=== PATIENT | female | born 1945 | race Caucasian/White ===

== ENCOUNTER 2023-10-16 08:58 | Observation (INO) ==
--- NOTE | 2023-09-21 11:41 | PAT Medication Instructions ---
Medication Instructions Date of Service September 21, 2023 Home Medications acetaminophen 325 mg tablet 650 mg PO TID PRN amlodipine 10 mg tablet 10 mg PO DAILY aripiprazole 10 mg tablet 10 mg PO DAILY benzonatate 100 mg capsule 100 mg PO TID PRN carboxymethylcellulose sodium 0.5 % eye drops (Refresh Tears) 1 drp OPB BID diazepam 5 mg tablet 5 mg PO BID ferrous sulfate 325 mg (65 mg iron) tablet 325 mg PO DAILY fluoxetine 10 mg capsule 10 mg PO DAILY fluoxetine 40 mg capsule 40 mg PO DAILY losartan 100 mg tablet 100 mg PO DAILY metoprolol succinate 25 mg tablet,extended release 24 hr 75 mg PO DAILY pantoprazole 40 mg tablet,delayed release 40 mg PO BID thiamine HCl (vitamin B1) 100 mg tablet (Vitamin B-1) 100 mg PO BID tramadol 50 mg tablet 50 mg PO QID PRN trazodone 50 mg tablet 25 mg PO HS Check with prescriber aripiprazole 10 mg tablet 10 mg PO DAILY Continue as directed amlodipine 10 mg tablet 10 mg PO DAILY fluoxetine 10 mg capsule 10 mg PO DAILY fluoxetine 40 mg capsule 40 mg PO DAILY metoprolol succinate 25 mg tablet,extended release 24 hr 75 mg PO DAILY DO NOT take the morning of surgery benzonatate 100 mg capsule 100 mg PO TID PRN ferrous sulfate 325 mg (65 mg iron) tablet 325 mg PO DAILY losartan 100 mg tablet 100 mg PO DAILY thiamine HCl (vitamin B1) 100 mg tablet (Vitamin B-1) 100 mg PO BID Take morning of surgery With a small sip of water, OTHERWISE NOTHING TO EAT OR DRINK AFTER MIDNIGHT: acetaminophen 325 mg tablet 650 mg PO TID PRN(if needed) carboxymethylcellulose sodium 0.5 % eye drops (Refresh Tears) 1 drp OPB BID diazepam 5 mg tablet 5 mg PO BID pantoprazole 40 mg tablet,delayed release 40 mg PO BID tramadol 50 mg tablet 50 mg PO QID PRN(if needed) Take evening before surgery acetaminophen 325 mg tablet 650 mg PO TID PRN(if needed) benzonatate 100 mg capsule 100 mg PO TID PRN(if needed) carboxymethylcellulose sodium 0.5 % eye drops (Refresh Tears) 1 drp OPB BID diazepam 5 mg tablet 5 mg PO BID pantoprazole 40 mg tablet,delayed release 40 mg PO BID thiamine HCl (vitamin B1) 100 mg tablet (Vitamin B-1) 100 mg PO BID tramadol 50 mg tablet 50 mg PO QID PRN(if needed) trazodone 50 mg tablet 25 mg PO HS Other Notes If you have any questions please call us at [phone] or [phone] or [phone] or [phone]
--- NOTE | 2023-09-24 12:36 | Anesthesiology Consultation ---
Date of Service September 24, 2023 Assessment & Plan (1) Encounter for pre-operative examination: - Infectious disease screening: Per assessment on 09/24/23: No known infectious disease contacts or current infectious disease symptoms. No noted Covid positive test result in past 90 days. Patient resident at [facility]. Covid-19 PCR order given to patient at PAT visit and instructed patient/sister need for having preop Covid testing done 2-4 days prior to surgery- Awaiting preop Covid test results. - Outpatient joint assessment: Pt currently scheduled for inpatient pathway. If surgeon requests review for outpatient joint pathway, patient is not recommended candidate for outpatient joint program from anesthesia standpoint. - Hx anesthesia complications: * [facility] visit 08/12/23: "She had troubles with aspiration after a previous hip replacement and she is a little bit nervous about that for this one." * Patient/sister report two previous episodes of perioperative aspiration (L TKA/R IZA, done under [place] reportedly d/t hx of back surgery/spinal hardware) requiring post-op ventilator use (for approximately a week). These surgeries were performed remotely in [place] (patient/family unable to obtain specific hospital/details- unable to obtain official records) - Cardiology visit (08/21/23): "Her predominant complaint is an inability to ambulate on account of her left hip. She is due to have surgery for the same and is seeing me for cardiac clearance in this regard. It is not possible to gauge her functional status as she is wheelchair-bound however in regards to her ensuing orthopedic surgery; there is no history of ischemic heart disease, cerebrovascular disease, diabetes or chronic kidney disease; she is not due to have high risk surgery.. And I do not feel that she has congestive heart failureshe has minimal nonpitting edema with clear lung bases, and onelevated JVP and no gallop. She does have valvular heart disease but is currently asymptomatic. She does have a holosystolic murmur at the lower left sternal border and an early diastolic murmur at the base.. I also note that a recent pharmacological nuclear stress test was reassuringly negative for ischemia and infarction. Her echocardiogram from November revealed normal LV and RV size and systolic function. I do feel that we should proceed with her surgery, excepting the cardiovascular risk involved and under perioperative betablockade. Since there is some time before her surgery, I do feel that we should obtain a repeat echocardiogram, although this is not as per guidelines." Echo done 09/30. - Cardiology visit (10/06/23): "..we should proceed with the surgery, excepting the cardiovascular risk involved and under perioperative betablockade." - [facility] visit (10/06/23): ".. Presents today as a new patient.. Needs clearance for knee and hip surgeryhas found up on a ventilator after surgery twice.. Hemidiaphragm elevation: Based on CXR from 11/2022 right hemidiaphragm elevation.. We will order XR diaphragm and CT chest to be completed within the next week.. CPFT was reviewed todaywas normal.. In the past with surgical procedures she was placed on vent afterwards. Given this Hx we do not feel comfortable clearing her until testing.. Is completed. She is also pending clearance with cardiology, had recent echocardiogramwe do not have results of these yet. We will discuss being cleared further at next appointment.. Continue supplemental oxygen 2 LPM at Hx.. Follow-up in 1 week (October 09 in [facility] office)." Echo + cardio clearance completed. Awaiting pulmonary-ordered preop imaging (XR diaphragm and CT chest) and upcoming office visit appt/final clearance ( [facility]). Chart Review Chart Review: Patient seen in Pre Admission Testing Teaching & Discussion Pre-Anesthesia Teaching/Discussion Notes: Instructed NPO after midnight before surgery,except medications with 15 cc of water. Medication instructions provided according to the PAT guidelines. History Surgery Operation Date: 10/16/23 09:25 Proposed Procedures p Left Anterior Total Hip Arthroplasty - Eamon Burrell DO Height/Weight Height: 5 ft 1 in Weight: 71.8 kg Allergies Allergy/AdvReac Type Severity Reaction Status Date / Time hydrocodone Allergy Unknown Per records Verified 09/22/23 12:42 Medications Home Medications Medication Instructions Recorded Confirmed Last Taken acetaminophen 325 mg tablet 650 mg PO TID PRN Pain 09/16/23 09/16/23 Unknown amlodipine 10 mg tablet 10 mg PO DAILY 09/16/23 09/16/23 Unknown aripiprazole 10 mg tablet 10 mg PO DAILY 09/16/23 09/16/23 Unknown benzonatate 100 mg capsule 100 mg PO TID PRN Cough 09/16/23 09/16/23 Unknown carboxymethylcellulose sodium 0.5 1 drp OPB BID 09/16/23 09/16/23 Unknown % eye drops (Refresh Tears) diazepam 5 mg tablet 5 mg PO BID 09/16/23 09/16/23 Unknown ferrous sulfate 325 mg (65 mg 325 mg PO DAILY 09/16/23 09/16/23 Unknown iron) tablet fluoxetine 10 mg capsule 10 mg PO DAILY 09/16/23 09/16/23 Unknown fluoxetine 40 mg capsule 40 mg PO DAILY 09/16/23 09/16/23 Unknown losartan 100 mg tablet 100 mg PO DAILY 09/16/23 09/16/23 Unknown metoprolol succinate 25 mg 75 mg PO DAILY 09/16/23 09/16/23 Unknown tablet,extended release 24 hr pantoprazole 40 mg tablet,delayed 40 mg PO BID 09/16/23 09/16/23 Unknown release thiamine HCl (vitamin B1) 100 mg 100 mg PO BID 09/16/23 09/16/23 Unknown tablet (Vitamin B-1) tramadol 50 mg tablet 50 mg PO QID PRN Pain 09/16/23 09/16/23 Unknown trazodone 50 mg tablet 25 mg PO HS 09/16/23 09/16/23 Unknown Past Medical History Medical History Anxiety disorder, unspecified Essential (primary) hypertension History of CHF (congestive heart failure) Questionable hx per received records Cardiology visit 08/21/2023: "I do not feel that she has congestive heart failure- she has minimal nonpitting edema with clear lung bases, and un- elevated JVP and no gallop" History of falling Hx of duodenal ulcer Lives in assisted living facility Major depressive disorder recurrent severe without psychotic features Muscle weakness (generalized) On supplemental oxygen therapy 2-3L O2 HS Osteoarthritis of left hip Valvular heart disease Exercise / Class Metabolic Activity IV < 2 Limit ADL/Bedbound Past Surgical History Surgical History History of anesthesia complications [facility] visit 08/12/23: "She had troubles with aspiration after a previous hip replacement and she is a little bit nervous about that for this one." Patient/sister report two previous episodes of perioperative aspiration (L TKA/R IZA, done [place] reportedly d/t hx of back surgery/spinal hardware) requiring post-op ventilator use (for approximately a week). These surgeries were performed remotely in [place] (patient/family unable to obtain specific hospital/details- unable to obtain official records) History of left knee replacement History of lumbar surgery + hardware History of right hip replacement History of surgery on wrist Per records Past Anesthesia History No Family Hx of Anesthesia Complications and Other * [facility] 08/12/23: "She had troubles with aspiration after a previous hip replacement and she is a little bit nervous about that for this one." * Patient/sister report two previous episodes of perioperative aspiration (L TKA/R IZA, done under [place] reportedly d/t hx of back surgery/spinal hardware) requiring post-op ventilator use (for approximately a week). These surgeries were performed remotely in [place] (patient/family unable to obtain specific hospital/details- unable to obtain official records) History of PONV No Hx of Motion Sickness and History of PONV Social History Smoking Status: Never smoker Do You Dip or Chew Tobacco: No Hx Alcohol Use: No Hx Substance Use: No Review of Systems Patient denies chest pain, shortness of breath, fever, chills, cough, wheezing, palpitations. Physical Exam Vital Signs VITALS BP 151/83 P 62 TEMP 98.0 SP02 95%RA RESP 16 PHYSICAL Full cervical extension range of motion. Full TMJ range of motion. TMD 3 finger breaths Mallampati Score 2 Dentition: missing sides/molars Lungs: clear throughout to auscultation Cardiac: regular rate and rhythm, no murmurs noted Spine: normal Carotid arteries: negative bruit Extremities: non-pitting trace LE edema Lab Results Anesthesia Preop Results Results Anesthesia Widget: WBC 6.63 K/ul (4.8-10.8) 09/24/23 Hgb 14.8 g/dl (12.0-16.0) 09/24/23 Hct 43.7 % (37.0-47.0) 09/24/23 Plt 274 K/uL (130-400) 09/24/23 Na 140 mmol/L (136-145) 09/24/23 K 4.1 mmol/L (3.5-5.1) 09/24/23 Cl 102 mmol/L (98-107) 09/24/23 CO2 29 mmol/L (21-32) 09/24/23 BUN 19 mg/dl (6-23) 09/24/23 Creat 0.75 mg/dl (0.6-1.2) 09/24/23 Glucose Level 80 mg/dl (70-99(Fasting)) 09/24/23 PT 10.9 Seconds (9.0-12.0) 09/24/23 PTT 28.2 Seconds (21.0-31.0) 09/24/23 INR 1.0 (0.9-1.1) 09/24/23 Blood Type B Positive 09/24/23 Antibody Screen NEGATIVE 09/24/23 Testing Electrocardiogram Date: 09/24/23 NSR at 60bpm. LVH with repolarization abnormality (Ken product). Chest X-Ray Date: 09/24/23 FINDINGS: There is mild elevation of the right hemidiaphragm. Lungs are clear. There is no pneumothorax or pleural effusion. Mild cardiomegaly. Mediastinal contours are normal. There is no evidence for pulmonary edema. IMPRESSION: No acute cardiopulmonary findings. Echocardiogram Date: 09/30/23 EF 60%. Severe LAD. Mild AR. Mild mitral annular calcification. Mild to moderate MR. LV diastolic filling pattern demonstrates impaired relaxation. No regional wall motion abnormalities. Stress Test Date: 08/13/23 Type: nuclear No ischemia/infarction. EF 68%. No reversible or fixed defects. ECG during Lexiscan: nondiagnostic for ischemia. Pulmonary Function Test Date: 08/14/23 FEV1 to FVC ratio is normal. No evidence of obstructive airway pattern. No significant response to bronchodilators of FEV1 or FVC. MVV is normal. No evidence of restrictive ventilatory impairment. Moderate reduction in diffusion capacity.
--- NOTE | 2023-10-15 14:57 | History & Physical Report ---
Date of Service October 15, 2023 Assessment & Plan (1) Osteoarthritis of left hip: We will proceed with a left anterior total of arthroplasty. Postoperatively she will be started on aspirin for DVT prophylaxis and kept overnight in the hospital for postop medical management. She plans to go to [facility] and up upon discharge. History of Present Illness Chief Complaint: Osteoarthritis of the left hip. Primary Care Provider: Jensen Dick Gregory Patel is a pleasant 78-year-old female who has been dealing with chronic increasing left hip and groin pain. She had her right hip replaced in [place] and did very well with that. Unfortunately, she then began having severe hip pain. Her then and she had to move to [place]. She then had a couple of medical issues and was unable to have her left hip replaced. She has been in a wheelchair for the past year. After failing extensive conservative treatment, she has elected proceed with a left anterior total hip arthroplasty. Allergies Allergy/AdvReac Type Severity Reaction Status Date / Time hydrocodone Allergy Unknown Per records Verified 09/22/23 12:42 Home Medications Medication Instructions Recorded Confirmed Type acetaminophen 325 mg tablet 650 mg PO TID PRN Pain 09/16/23 09/16/23 History amlodipine 10 mg tablet 10 mg PO DAILY 09/16/23 09/16/23 History aripiprazole 10 mg tablet 10 mg PO DAILY 09/16/23 09/16/23 History benzonatate 100 mg capsule 100 mg PO TID PRN Cough 09/16/23 09/16/23 History carboxymethylcellulose sodium 0.5 1 drp OPB BID 09/16/23 09/16/23 History % eye drops (Refresh Tears) diazepam 5 mg tablet 5 mg PO BID 09/16/23 09/16/23 History ferrous sulfate 325 mg (65 mg 325 mg PO DAILY 09/16/23 09/16/23 History iron) tablet fluoxetine 10 mg capsule 10 mg PO DAILY 09/16/23 09/16/23 History fluoxetine 40 mg capsule 40 mg PO DAILY 09/16/23 09/16/23 History losartan 100 mg tablet 100 mg PO DAILY 09/16/23 09/16/23 History metoprolol succinate 25 mg 75 mg PO DAILY 09/16/23 09/16/23 History tablet,extended release 24 hr pantoprazole 40 mg tablet,delayed 40 mg PO BID 09/16/23 09/16/23 History release thiamine HCl (vitamin B1) 100 mg 100 mg PO BID 09/16/23 09/16/23 History tablet (Vitamin B-1) tramadol 50 mg tablet 50 mg PO QID PRN Pain 09/16/23 09/16/23 History trazodone 50 mg tablet 25 mg PO HS 09/16/23 09/16/23 History Past Med/Surg History Medical History On supplemental oxygen therapy 2-3L O2 HS Valvular heart disease History of CHF (congestive heart failure) Questionable hx per received records Cardiology visit 08/21/2023: "I do not feel that she has congestive heart failure- she has minimal nonpitting edema with clear lung bases, and un- elevated JVP and no gallop" Osteoarthritis of left hip Lives in assisted living facility Hx of duodenal ulcer Essential (primary) hypertension Anxiety disorder, unspecified History of falling Muscle weakness (generalized) Major depressive disorder recurrent severe without psychotic features Surgical History History of anesthesia complications [facility] visit 08/12/23: "She had troubles with aspiration after a previous hip replacement and she is a little bit nervous about that for this one." Patient/sister report two previous episodes of perioperative aspiration (L TKA/R ZIA, done under [place] reportedly d/t hx of back surgery/spinal hardware) requiring post-op ventilator use (for approximately a week). These surgeries were performed remotely in [place] (patient/family unable to obtain specific hospital/details- unable to obtain official records) History of left knee replacement History of surgery on wrist Per records History of right hip replacement History of lumbar surgery + hardware Social History Smoking Status: Never smoker Do You Dip or Chew Tobacco: No; Hx Alcohol Use: No Hx Substance Use: No Preferred Language: Luxembourgish Communication Ability: Effective Press Offbearer Required: No Current Living Situation: Other Current Living Situation Comment: [facility] Assistive Devices Comment: unknown Review of Systems All systems reviewed & are unremarkable except as noted in HPI & below. Physical Exam On physical examination of the left hip, she has decreased range of motion. She has pain with forced internal/external rotation. All of her pain is located in her groin.. Constitutional WD/WN, vitals as above Eyes PERRL, conjunctivae normal, anicteric sclerae ENMT external ear and nose normal, oropharynx normal Neck trachea midline, no thyromegaly Respiratory normal respiratory effort Cardiovascular RRR, no murmur, no edema Gastrointestinal (Abdomen) normal bowel sounds, soft, nontender, no hepatosplenomegaly Psychiatric A+Ox3, euthymic affect Results & Data Results & Data Laboratory Results . Diagnostic Findings X-rays of the left hip show advanced osteoarthritis with joint space narrowing, osteophyte formation, and [id number] articulation.. PG Care Time/CCT Total # of Minutes Spent Total Time Spent with Patient: Total time spent is greater than 50% in coordination of care (as documented) at patient's floor/unit and/or counseling patient: Coding Level of Care Code None Diagnoses Osteoarthritis of left hip M16.12
[~2023-10-16 08:58] MED LIST: ACETAMINOPHEN 500 MG TAB PO SCH; FAMOTIDINE 20 MG TAB PO SCH; GABAPENTIN 300 MG CAP PO SCH; LR 15ML/HR IV SCH; LR 60ML/HR IV SCH; ORTHO JOINT MIX INFIL SCH; TRANEXAMIC ACID 1,000 MG **IV Intra-op IV SCH; TRANEXAMIC ACID 1,000 MG **IV Pre-op IV SCH; ceFAZolin 2000MG 2,000 MG/15 ML SYR IV SCH; dexAMETHasone 4 MG TAB PO SCH
--- NOTE | 2023-10-16 10:16 | History & Physical Bridge Note ---
Date of Service October 16, 2023 History & Physical Bridge Note I have examined the patient, reviewed the History & Physical and in the interval since the performance of the History & Physical I have noted the following changes of clinical significance: no changes noted
[2023-10-16] MEDS ORDERED: PROPOFOL IV EMULSION 10 MG/ML 20 ML VIAL IV ONE (10:27)
[2023-10-16] MEDS ORDERED: ONDANSETRON INJ 2 MG/ML 2 ML VIAL ONE (10:27)
[2023-10-16] MEDS ORDERED: LIDOCAINE 2% 2 ML VIAL/AMP(20MG/ML) INFIL ONE (10:27)
[2023-10-16] MEDS ORDERED: MIDAZOLAM HCL 1 MG/ML 2ML VIAL ONE (10:27)
[2023-10-16] MEDS ORDERED: METOCLOPRAMIDE HCL INJ 5 MG/ML 2 ML VIAL IV STA (10:28)
[2023-10-16] MEDS ORDERED: fentaNYL citrate PF 100 MCG/2 ML VIAL ONE ×2 (10:28→12:17)
[2023-10-16] MEDS ORDERED: ATROPINE SULFATE 0.1 MG/ML 10ML SYR IV PRN (10:30)
[2023-10-16] MEDS ORDERED: ePHEDrine sulfate 50 MG/ML AMP IV PRN (10:30)
[2023-10-16] MEDS ORDERED: ONDANSETRON INJ 2 MG/ML 2 ML VIAL IV PRN ×2 (10:30→14:37)
[2023-10-16] MEDS ORDERED: fentaNYL citrate PF 100 MCG/2 ML VIAL IV PRN (10:30)
[2023-10-16] MEDS ORDERED: ORTHO JOINT ANESTHETIC ONE (10:52)
[2023-10-16] MEDS ORDERED: SUGAMMADEX SODIUM 200 MG/2 ML VIAL IV ONE (12:29)
[2023-10-16] MEDS ORDERED: ePHEDrine sulfate 50 MG/5 ML SYR ONE (12:29)
[2023-10-16] MEDS ORDERED: SUCCINYLCHOLINE CHLORIDE 20 MG/ML 10 ML VIAL IV ONE (12:30)
--- NOTE | 2023-10-16 12:34 | Operative Report ---
PG Post Operative Report Pre & Post Diagnosis Operation Date: 10/16/23 11:00 Pre-Op Diagnosis: Degenerative Joint Disease Left Hip Post-Op Diagnosis: Degenerative Joint Disease Left Hip I identified the patient and participated in the time-out.: Yes Procedure Operation Date: 10/16/23 11:00 Actual Procedures p Left Anterior Total Hip Arthroplasty(Left) - Eamon Burrell DO Surgeon Eamon Burrell DO [employer] Manager Eamon Lema PA-C Estimated Blood Loss 250 Findings Consistent with Post-Op Diagnosis Specimens Left femoral head Description of Procedure Implants used I used a ZimmerBiomet total hip arthroplasty system with a size 2 standard offset Avenir Complete stem, a 50 mm G7 cup with a 25mm screw, an E1 polyethylen e liner, a 36 mm ceramic head with a -3.5 neck. Amanda arrived at the hospital for the above procedure. She was seen in the preoperative holding area and the operative extremity was identified and signed. She was given a preoperative antibiotic, and TXA. She was then taken back to the operating room and laid on the table in the supine position. She was given general anesthesia. The operative leg was secured to a Puristst leg positioner. The hip was then prepped and draped in sterile fashion. A timeout was done and the patient and the operative extremity was properly identified. An anterior approach was used. Dissection was taken down through the fascia and the tensor muscle belly was retracted laterally and the rectus was retracted medially. The circumflex vessels were identified and ligated. The capsule was then incised and tagged for later repair. The femoral neck was then cut and the femoral head was removed. The acetabulum was exposed. Time was spent doing a complete circumferential labral release. Sequential reaming of the acetabulum up to a size 49 reamer was done. Final reamings were done under fluoroscopy to ensure appropriate version. A Biomet 50 mm G7 cup was then impacted into place. A single 25 mm screw was placed. The E1 polyethylene liner was then snapped into place. Surrounding soft tissues were then injected with 100 cc of an orthopedic pain control cocktail. The proximal femur was then exposed. Sequential broaching up to a size 2 broach was done. Off that broach a size 36 head with a -3.5 neck was trialed. The hip was reduced and fluoroscopic images showed anatomic alignment of the implants in acceptable length. The broach was removed. The final size 2 standard offset Avenir Complete stem was then impacted into place. A ceramic 36 mm head with a -3.5 neck was then impacted onto the stem and the hip was reduced. Final fluoroscopic images showed anatomic alignment of the hip. The capsule was then closed with #1 Vicryl suture. A dilute betadyne lavage was then done for 3 minutes. The joint was then irrigated with normal saline solution. The fascia was closed with #1 PDS suture. Skin was closed with 2-0 Vicryl, radha, and a Silverlon dressing. She was then transferred to a hospital bed and taken to the post anesthesia care unit in stable condition. She tolerated the procedure well. Eamon Lema PA-C, was present for the entire procedure. He was critical for patient positioning, prepping, draping, retraction exposure, wound closure and application of sterile dressing. I attest to the content of the Intraoperative Record and any orders documented therein. Any exceptions are noted below.
--- NOTE | 2023-10-16 13:24 | Fluoroscopy Report ---
FL hip LT 1V CLINICAL HISTORY: LEFT ANTERIOR HIP. Left hip prosthesis. COMPARISON STUDY: None. FLUOROSCOPY TIME: 19 seconds FLUOROSCOPY IMAGES: 1 Ka,r: 2.4 mGy FINDINGS: There is a left total hip arthroplasty. The hardware appears intact. No fracture or disloca tion. IMPRESSION: Fluoroscopic assistance as above. ACT 112: Negative or not required by law. Electronically signed by: Ceferino Young M.D. 10/16/2023 1:23 PM
--- NOTE | 2023-10-16 13:37 | XRay Report ---
AP PELVIS, CROSSTABLE LATERAL LEFT HIP History: Left total hip arthroplasty. Degenerative arthritis. Postop. FINDINGS: The patient is status post a left total hip arthroplasty. The hardware is intact. No fractu re or dislocation. Skin radha are in place. Prior right total hip arthroplasty is noted. IMPRESSION: Left total hip arthroplasty. No evidence for hardware complication. ACT 112: Negative or not required by law. Electronically signed by: Ceferino Young M.D. 10/16/2023 1:36 PM
--- NOTE | 2023-10-16 14:11 | Anesthesiology Progress Note ---
Date of Service October 16, 2023 Anesthesia Post Procedure Vital Signs Vital Signs: Temp Pulse Pulse Resp BP Pulse Ox O2 Del Method 10/16/23 14:05 65 17 127/59 L 93 Nasal Cannula 10/16/23 13:55 63 14 135/59 L 93 Nasal Cannula 10/16/23 13:45 97.7 F 62 15 132/61 93 Nasal Cannula 10/16/23 13:35 67 16 133/43 L 94 Oxymask 10/16/23 13:25 66 20 141/45 H 95 Oxymask 10/16/23 13:15 70 16 159/73 H 94 Oxymask 10/16/23 13:05 97.2 F L 66 22 147/61 H 93 Oxymask 10/16/23 10:27 Nasal Cannula 10/16/23 10:00 98.1 F 64 20 158/60 H 92 Room Air O2 Flow Rate 10/16/23 14:05 2.5 10/16/23 13:55 2.5 10/16/23 13:45 2.5 10/16/23 13:35 4 10/16/23 13:25 4 10/16/23 13:15 4 10/16/23 13:05 6 10/16/23 10:27 2 10/16/23 10:00 Pain Intensity Left Hip: Pain Intensity: 4 Transfer of Care Handoff Completed per policy Notes Mental Status: alert / awake / arousable and participated in evaluation Patient Amnestic to Procedure: Yes Nausea / Vomiting: adequately controlled Pain: adequately controlled Airway Patency, RR, SpO2: stable & adequate BP & HR: stable & adequate Hydration State: stable & adequate Anesthetic Complications: no major complications apparent and Pt Satisfied with anesthetic care
[2023-10-16] MEDS ORDERED: HYDROmorphone INJ 0.5 MG/0.5 ML SYR IV PRN (14:37)
[2023-10-16] MEDS ORDERED: METOCLOPRAMIDE HCL INJ 5 MG/ML 2 ML VIAL IV PRN (14:37)
[2023-10-16] MEDS ORDERED: NALOXONE HCL 0.4 MG/1 ML VIAL/CARP IV PRN (14:37)
[2023-10-16] MEDS ORDERED: BENZONATATE 100 MG CAPSULE PO PRN (14:37)
[2023-10-16] MEDS ORDERED: MAGNESIUM HYDROXIDE SUSP 30 ML UDC PO PRN (14:37)
[2023-10-16] MEDS ORDERED: bisacodyL 10 MG SUPP PR PRN (14:37)
[2023-10-16] MEDS: SODIUM CHLORIDE 0.9% 1,000 ML IV SCH (14:58)
[2023-10-16] MEDS: KETOROLAC TROMETHAMINE 15 MG/ML VIAL IV SCH ×2 (15:41→21:08)
[2023-10-16] MEDS: ACETAMINOPHEN 500 MG TAB PO SCH ×2 (15:41→21:07)
[2023-10-16] MEDS: ceFAZolin 2000MG 2,000 MG/15 ML SYR IV SCH (18:27)
[2023-10-16] MEDS: SENNA 8.6 MG TAB PO SCH (21:08)
[2023-10-16] MEDS: THIAMINE HCL 100 MG TAB PO SCH (21:08)
[2023-10-16] MEDS: ASPIRIN 81 MG ECTAB PO SCH (21:09)
[2023-10-16] MEDS: traZODone HCL 50 MG TAB PO SCH (21:09)
[2023-10-16] MEDS: DOCUSATE SODIUM 100 MG CAP PO SCH (21:09)
[2023-10-16] MEDS: PANTOprazole 40 MG TAB PO SCH (21:10)
[2023-10-16] MEDS: diazePAM 5 MG TABLET PO SCH (22:07)
[2023-10-17] MEDS: ceFAZolin 2000MG 2,000 MG/15 ML SYR IV SCH (03:27)
[2023-10-17] MEDS: KETOROLAC TROMETHAMINE 15 MG/ML VIAL IV SCH ×4 (03:30→19:54)
[2023-10-17] MEDS: ACETAMINOPHEN 500 MG TAB PO SCH ×3 (05:23→19:55)
[2023-10-17] MEDS: SODIUM CHLORIDE 0.9% 1,000 ML IV SCH (05:25)
[2023-10-17] MEDS ORDERED: dexAMETHasone 4 MG TAB PO SCH (08:00)
[2023-10-17] MEDS: PANTOprazole 40 MG TAB PO SCH ×2 (08:21→19:52)
[2023-10-17] MEDS: DOCUSATE SODIUM 100 MG CAP PO SCH ×2 (08:21→19:53)
[2023-10-17] MEDS: FLUoxetine HCL 20 MG CAP PO SCH (08:21)
[2023-10-17] MEDS: ASPIRIN 81 MG ECTAB PO SCH ×2 (08:21→19:55)
[2023-10-17] MEDS: ARIPiprazole 10 MG TAB PO SCH (08:21)
[2023-10-17] MEDS: THIAMINE HCL 100 MG TAB PO SCH ×2 (08:22→19:52)
[2023-10-17] MEDS: MULTIVITAMIN TAB PO SCH (08:22)
[2023-10-17] MEDS: FLUoxetine HCL 10 MG CAP PO SCH (08:22)
[2023-10-17] MEDS: METOPROLOL SUCC 25MG EXT REL TAB PO SCH (08:22)
[2023-10-17] MEDS: LOSARTAN POTASSIUM 50 MG TAB PO SCH (08:22)
[2023-10-17] MEDS: amLODIPine BESYLATE 5 MG TAB PO SCH (08:22)
[2023-10-17] MEDS: diazePAM 5 MG TABLET PO SCH ×2 (08:24→20:01)
--- NOTE | 2023-10-17 08:45 | Orthopedic Progress Note ---
Date of Service October 17, 2023 Assessment & Plan (1) Status post left hip replacement: She has been a little bit slow to recover to this point. She will be seen by physical therapy today for ambulation and range of motion exercises. Hopefully the nursing staff can slowly wean her off the oxygen as well. Her vital signs are otherwise stable. We will see how she does today. She will need placement in a assisted facility. She is on aspirin for DVT prophylaxis. Jerri Patel was seen and examined at bedside this morning. She has been a little bit slow to recover. She has not been out of bed yet. She still on 3 L of oxygen by nasal cannula. She is not having too much pain in the hip.. Review of Systems All systems reviewed & are unremarkable except as noted in HPI & below. Physical Exam On physical examination left hip, the dressing is clean and dry. Her leg is out full extension. She has active dorsiflexion plantarflexion of her left ankle.. Results & Data Results & Data Laboratory Results . Diagnostic Findings Postoperative x-rays of the left hip show the prosthesis to be in anatomic alignment without any evidence of fracture complication, or loosening.. PG Care Time/CCT Total # of Minutes Spent Total Time Spent with Patient: Total time spent is greater than 50% in coordination of care (as documented) at patient's floor/unit and/or counseling patient: Coding Level of Care Code 92712 Post Operative Follow-Up Diagnoses Status post left hip replacement Z96.642
[2023-10-17] MEDS: SENNA 8.6 MG TAB PO SCH (19:53)
[2023-10-17] MEDS: traZODone HCL 50 MG TAB PO SCH (19:54)
[2023-10-18] MEDS: oxyCODONE HCL IR 5 MG TAB (IMMEDIATE RELEASE) PO PRN ×2 (00:05→14:34)
[2023-10-18] MEDS: KETOROLAC TROMETHAMINE 15 MG/ML VIAL IV SCH ×2 (03:22→08:00)
[2023-10-18] MEDS: ACETAMINOPHEN 500 MG TAB PO SCH ×3 (06:28→21:08)
[2023-10-18] MEDS: ASPIRIN 81 MG ECTAB PO SCH ×2 (07:59→21:09)
[2023-10-18] MEDS: ARIPiprazole 10 MG TAB PO SCH (08:00)
[2023-10-18] MEDS: FLUoxetine HCL 20 MG CAP PO SCH (08:00)
[2023-10-18] MEDS: MULTIVITAMIN TAB PO SCH (08:00)
[2023-10-18] MEDS: METOPROLOL SUCC 25MG EXT REL TAB PO SCH (08:00)
[2023-10-18] MEDS: PANTOprazole 40 MG TAB PO SCH ×2 (08:00→21:09)
[2023-10-18] MEDS: LOSARTAN POTASSIUM 50 MG TAB PO SCH (08:00)
[2023-10-18] MEDS: THIAMINE HCL 100 MG TAB PO SCH ×2 (08:00→21:09)
[2023-10-18] MEDS: DOCUSATE SODIUM 100 MG CAP PO SCH ×2 (08:00→21:09)
[2023-10-18] MEDS: FLUoxetine HCL 10 MG CAP PO SCH (08:01)
[2023-10-18] MEDS: amLODIPine BESYLATE 5 MG TAB PO SCH (08:01)
[2023-10-18] MEDS: diazePAM 5 MG TABLET PO SCH ×2 (08:03→21:08)
--- NOTE | 2023-10-18 11:33 | Orthopedic Progress Note ---
Date of Service October 18, 2023 Assessment & Plan (1) Status post left hip replacement: She seems to be doing fairly well. She is working with therapy and we are monitoring her O2 levels. We are awaiting placement at a SNF facility. We will continue with therapy today. Subjective i phoned in and spoke to the nurse today regarding Raffaele progress and did a full chart review. She actually worked pretty well with physical therapy. 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 She is on 3L of O2 and is on 2L at baseline. Review of Systems All systems reviewed & are unremarkable except as noted in HPI & below. Physical Exam . Results & Data Results & Data Laboratory Results . Diagnostic Findings . PG Care Time/CCT Total # of Minutes Spent Total Time Spent with Patient: Total time spent is greater than 50% in coordination of care (as documented) at patient's floor/unit and/or counseling patient: Coding Level of Care Code 80769 Post Operative Follow-Up Diagnoses Status post left hip replacement Z96.642
[2023-10-18] MEDS: SENNA 8.6 MG TAB PO SCH (21:08)
[2023-10-18] MEDS: traZODone HCL 50 MG TAB PO SCH (21:09)
[2023-10-19] MEDS: ACETAMINOPHEN 500 MG TAB PO SCH ×3 (05:41→21:25)
[2023-10-19] MEDS: oxyCODONE HCL IR 5 MG TAB (IMMEDIATE RELEASE) PO PRN ×2 (07:16→13:27)
--- NOTE | 2023-10-19 07:45 | Orthopedic Progress Note ---
Date of Service October 19, 2023 Assessment & Plan (1) Status post left hip replacement: She seems to be doing fairly well. She is working with therapy and we are monitoring her O2 levels. She is still on 3 L of oxygen but is getting closer to her baseline in which she is on 2 L of oxygen at home. We are awaiting placement at a SNF facility. Anticipation would be early this week for discharge pending authorizations. Continue with aspirin for DVT prophylaxis. We will continue with therapy today. Subjective . Amanda is doing well today with decent pain control. She is anticipating working with physical therapy today and is feeling anxious about it. She used to be a nonambulator prior to her hip replacement due to the pain the hip was causing for the last 2 years. She denies any concerns with surgical incision site. She denies any active bleeding, discharge, or signs of infection. She is currently still waiting for placement at this point. Case management is working on placement but had to wait till today to send authorizations out to 2 different fdc facilities. No other concerns today. Review of Systems All systems reviewed & are unremarkable except as noted in HPI & below. Physical Exam . On physical examination left hip, the dressing is clean and dry. Her leg is out full extension. She has active dorsiflexion plantarflexion of her left ankle.. Results & Data Results & Data Laboratory Results . Diagnostic Findings . PG Care Time/CCT Total # of Minutes Spent Total Time Spent with Patient: Total time spent is greater than 50% in coordination of care (as documented) at patient's floor/unit and/or counseling patient: Coding Level of Care Code 34609 Post Operative Follow-Up Diagnoses Status post left hip replacement Z96.642
[2023-10-19] MEDS: PANTOprazole 40 MG TAB PO SCH ×2 (08:39→21:24)
[2023-10-19] MEDS: ASPIRIN 81 MG ECTAB PO SCH ×2 (08:39→21:23)
[2023-10-19] MEDS: THIAMINE HCL 100 MG TAB PO SCH ×2 (08:39→21:25)
[2023-10-19] MEDS: amLODIPine BESYLATE 5 MG TAB PO SCH (08:40)
[2023-10-19] MEDS: MULTIVITAMIN TAB PO SCH (08:40)
[2023-10-19] MEDS: DOCUSATE SODIUM 100 MG CAP PO SCH ×2 (08:40→21:24)
[2023-10-19] MEDS: LOSARTAN POTASSIUM 50 MG TAB PO SCH (08:41)
[2023-10-19] MEDS: FLUoxetine HCL 10 MG CAP PO SCH (08:41)
[2023-10-19] MEDS: FLUoxetine HCL 20 MG CAP PO SCH (08:41)
[2023-10-19] MEDS: METOPROLOL SUCC 25MG EXT REL TAB PO SCH (08:42)
[2023-10-19] MEDS: ARIPiprazole 10 MG TAB PO SCH (08:42)
[2023-10-19] MEDS: diazePAM 5 MG TABLET PO SCH ×2 (08:43→21:24)
[2023-10-19] MEDS: traZODone HCL 50 MG TAB PO SCH (21:24)
[2023-10-19] MEDS: SENNA 8.6 MG TAB PO SCH (21:24)
[2023-10-20] MEDS: ACETAMINOPHEN 500 MG TAB PO SCH ×2 (06:08→12:39)
[2023-10-20] MEDS: oxyCODONE HCL IR 5 MG TAB (IMMEDIATE RELEASE) PO PRN ×2 (07:15→12:39)
[2023-10-20] MEDS: FLUoxetine HCL 10 MG CAP PO SCH (08:36)
[2023-10-20] MEDS: amLODIPine BESYLATE 5 MG TAB PO SCH (08:36)
[2023-10-20] MEDS: MULTIVITAMIN TAB PO SCH (08:37)
[2023-10-20] MEDS: DOCUSATE SODIUM 100 MG CAP PO SCH (08:37)
[2023-10-20] MEDS: PANTOprazole 40 MG TAB PO SCH (08:37)
[2023-10-20] MEDS: THIAMINE HCL 100 MG TAB PO SCH (08:38)
[2023-10-20] MEDS: FLUoxetine HCL 20 MG CAP PO SCH (08:38)
[2023-10-20] MEDS: ASPIRIN 81 MG ECTAB PO SCH (08:38)
[2023-10-20] MEDS: ARIPiprazole 10 MG TAB PO SCH (08:38)
[2023-10-20] MEDS: METOPROLOL SUCC 25MG EXT REL TAB PO SCH (08:39)
[2023-10-20] MEDS: LOSARTAN POTASSIUM 50 MG TAB PO SCH (08:39)
[2023-10-20] MEDS: diazePAM 5 MG TABLET PO SCH (08:49)
--- NOTE | 2023-10-20 11:39 | Orthopedic Progress Note ---
Date of Service October 20, 2023 Assessment & Plan (1) Status post left hip replacement: She seems to be doing fairly well. She is working with therapy and we are monitoring her O2 levels. She is still on 3 L of oxygen but is getting closer to her baseline in which she is on 2 L of oxygen at home. We are awaiting placement at a SNF facility. Anticipation would be later today. Continue with aspirin for DVT prophylaxis. We will continue with therapy today. Subjective . Amanda is doing well today with decent pain control. She has been working with PT and has been doing quite well with them. She denies any concerns with surgical incision site. She denies any active bleeding, discharge, or signs of infection. She is currently still waiting for placement at this point. Case management is working on placement but had to wait till today to send authorizations out to 2 different nursing home facilities. Possible d/c today. No other concerns today. Review of Systems All systems reviewed & are unremarkable except as noted in HPI & below. Physical Exam . On physical examination left hip, the dressing is clean and dry. Her leg is out full extension. She has active dorsiflexion plantarflexion of her left ankle.. Results & Data Results & Data Laboratory Results . Diagnostic Findings . PG Care Time/CCT Total # of Minutes Spent Total Time Spent with Patient: Total time spent is greater than 50% in coordination of care (as documented) at patient's floor/unit and/or counseling patient: Coding Level of Care Code 84578 Post Operative Follow-Up Diagnoses Status post left hip replacement Z96.642
--- NOTE | 2023-10-20 11:47 | Discharge Summary ---
Date of Service October 20, 2023 Admission HPI (Per Admitting) Amanda is a pleasant 78-year-old female who has been dealing with chronic increasing left hip and groin pain. She had her right hip replaced in [place] and did very well with that. Unfortunately, she then began having severe hip pain. Her then and she had to move to [place]. She then had a couple of medical issues and was unable to have her left hip replaced. She has been in a wheelchair for the past year. After failing extensive conservative treatment, she has elected proceed with a left anterior total hip arthroplasty. Admission Exam (Per Admitting) On physical examination of the left hip, she has decreased range of motion. She has pain with forced internal/external rotation. All of her pain is located in her groin.. Principal Diagnosis Same as "Discharge Diagnosis" noted below under Discharge Instructions. Discharge Exam . On physical examination left hip, the dressing is clean and dry. Her leg is out full extension. She has active dorsiflexion plantarflexion of her left ankle.. Discharge Data Procedures Performed Operation Date: 10/16/23 11:00 Actual Procedures p Left Anterior Total Hip Arthroplasty(Left) - Eamon Burrell DO Ordered Studies 10/16/23 11:00 FL hip LT 1V Routine Hospital Course (1) Status post left hip replacement: October 16, 2023 Amanda arrived at [facility] and underwent a left hip replacement without complications. She had a general anesthetic. Postoperatively, she was started on aspirin for DVT prophylaxis and transferred to the general orthopedic floors. On postoperative day #1, her vital signs showed an increased need for oxygen in which her flow rate was 3 L/min via nasal cannula. She is on 2 L at home. She also did not work with physical therapy this day which was not unexpected due to her being a nonambulator for 2 years. Her pain was well-controlled. On postop day #2, she was still requiring 3 L of oxygen via nasal cannula but was stable enough for discharge. Referrals were sent out for retirement facilities. No significant event occurred these days. She worked with physical therapy on this day. On postoperative day #3, she was still on 3 L of oxygen via nasal cannula. She did work more with physical therapy with ambulation and gait training. She was still awaiting placement to a retirement facility. Postoperative day #4, she continued to make progress with physical therapy and Occupational Therapy. She was stable for discharge to a retirement facility. She was able to work and participate well with physical therapy doing ambulation and range of motion exercises. She was discharged to a retirement facility. She is to follow- up with orthopedics in 2 weeks. PG Care Time/CCT Total # of Minutes Spent Total Time Spent with Patient: Total time spent is greater than 50% in coordination of care (as documented) at patient's floor/unit and/or counseling patient: Discharge Plan Discharge Items Patient Disposition: Transfer Half-Way Fac Reason For Visit: DJD Left Hip Discharge Diagnosis: Left hip replacement Activity: Per Instructions section Non-emergency contact: Surgeon Call non-emergency contact if: your wound has increased redness and your wound has increased drainage Follow-up/Referrals: Jensen Jenkins M.D. [Primary Care Provider] - Diet: Regular Addtl Attending Provider Instructions: Activity and Therapy Recommendations: * If you are using [facility] then therapy will be provided at your home until they feel you have accomplished all of your goals. * If you are using [facility] then Physical Therapy will be provided until they feel you are ready to start Outpatient Physical Therapy. * If you are not using home therapy then Outpatient Physical Therapy should start about 3-5 days from your day of surgery. Therapy will last about 6-10 weeks * You were shown a series of exercises in the hospital. Do these exercises three times each day including the exercises you were shown in physical therapy. * Get up and walk several times each day.~ For the first four weeks, try not to stand or walk for more than one hour at a time. If you do stand or walk for more than one hour, you will not hurt anything, but your leg will likely swell.~~ * As you feel comfortable, you may change from the walker or crutches to a cane and~then to independent walking. Medications: * Narcotic You will likely be sent home from the hospital with a prescription for the narcotic pain medication that worked best throughout your stay. * Aspirin Most patients will be required to take Aspirin 81mg twice a day for 6 weeks after surgery. This is obtained [id number] and a prescription is not necessary. * Cefadroxil -take the antibiotic twice a day for 10 days to help prevent infection. * Other medications may be prescribed for specific circumstances. If you have any questions, please call the office at . * Resume previous home medications unless otherwise instructed TEDs/Elastic Stockings: The white elastic stockings help limit swelling and prevent blood clots from forming in your legs. The more you wear them, the more they work. Wear them for six weeks. Dressing Care: Leave the Silverlon dressing in place for 7 days. After 7 days you may remove the dressing. If the incision is not draining then you may leave the radha open to air. If there is a little bit of drainage or if the radha are getting stuck on your clothing then cover the incision with a dry dressing. The radha will be removed at your 2 week follow-up appointment. Showering: You may shower with the Silverlon dressing in place. Do not let the shower spray hit the dressing directly. Pat the Silverlon dressing dry. If the dressing becomes wet underneath, then simply remove the dressing. Keep the incision dry until you are 7 days out from the day of surgery. After 7 days you may remove the Silverlon dressing and shower with the radha exposed. Let soapy water run over the radha and pat them dry. Do not scrub or soak the incision. Things To Watch For: * Drainage from the incision site that occurs more than one week after your nico aneta. * Increased redness at the incision site. * Fever above 102 degrees Fahrenheit. * Unusual chest pain or shortness of breath. * Call [facility] at with any of the above problems Follow-Up Visit: Follow-up with Dr. Burrell's PA (Eamon Lema) 2-3 weeks after your day of surgery. He will remove your radha and answer any questions. If you have any additional questions or concerns, Dr Burrell is usually in the office at the same time and will be available An appointment was probably scheduled when you signed-up for surgery in the off ice. If you have any questions call Office Instructions: More detailed instructions as well as Frequently Asked Questions were provided in a folder by our office when you signed-up for surgery. Please review these instructions when you get home. If you have any further questions or concerns, please feel free to call the office at [phone] Pending Studies at Discharge: No Stand-Alone Forms: My [facility] Skilled Items Patient informed of condition?: Yes DNR: No Discharge Level of Care: Skilled Communicable Disease: No Discharge Prognosis: Improving Lines: None Urinary Catheter: No Medications and DC Order Prescriptions: New aspirin 81 mg Tablet,Delayed Release (Dr/Ec) 81 mg PO BID 42 Days Qty: 84 0RF cefadroxil 500 mg capsule 500 mg PO BID 10 Days Qty: 20 0RF Continued fluoxetine 40 mg capsule 40 mg PO DAILY Rx Instructions: combine w/10mg daily for 50mg total acetaminophen 325 mg tablet 650 mg PO TID PRN (Reason: Pain) trazodone 50 mg tablet 25 mg PO HS thiamine HCl (vitamin B1) [Vitamin B-1] 100 mg Tablet 100 mg PO BID carboxymethylcellulose sodium [Refresh Tears] 0.5 % drops 1 drp OPB BID amlodipine 10 mg tablet 10 mg PO DAILY benzonatate 100 mg Capsule 100 mg PO TID PRN (Reason: Cough) pantoprazole 40 mg tablet,delayed release (DR/EC) 40 mg PO BID ferrous sulfate 325 mg (65 mg iron) Tablet 325 mg PO DAILY fluoxetine 10 mg capsule 10 mg PO DAILY Rx Instructions: combine w/40mg daily for 50mg total metoprolol succinate 25 mg tablet extended release 24 hr 75 mg PO DAILY losartan 100 mg tablet 100 mg PO DAILY diazepam 5 mg tablet 5 mg PO BID aripiprazole 10 mg tablet 10 mg PO DAILY tramadol 50 mg tablet 50 mg PO QID PRN (Reason: Pain) Qty: 30 0RF Discharge Orders: Discharge Order (Routine); Ordered 10/20/23 Ordered By: Austin Oliva Admission Data Admit Date/Time: 10/19/23 10:57 Attending Provider: Eamon Burrell Admit Provider: Eamon Burrell Primary Care Provider: Jensen Jenkins Principal Diagnosis Same as discharge diagnosis noted in discharge instructions.
== END 2023-10-20 13:05 | DRG 470 ==
LOC: ASU 08:58 → 3E 08:58
DX: Z99.3 Dependence on wheelchair; M16.12 Unilateral primary osteoarthritis, left hip; Z88.5 Allergy status to narcotic agent; Z96.652 Presence of left artificial knee joint; I10 Essential (primary) hypertension; Z79.899 Other long term (current) drug therapy; Z96.641 Presence of right artificial hip joint; Z99.81 Dependence on supplemental oxygen